=== PATIENT | female | born 1980 | race Caucasian/White ===

== ENCOUNTER 2017-10-22 01:17 | Emergency (ER) | payer SELFPAY ==
--- NOTE | 2017-10-22 01:24 | EDM.PDOC ---
ED HPI GENERAL MEDICAL PROBLEM - General Stated Complaint: INTOXICATED Time Seen by Provider: 10/22/17 01:17 Source of Information: Reports: Patient, EMS History Limitations: Reports: Intoxication, Uncooperative, Other (combative) - History of Present Illness INITIAL COMMENTS - FREE TEXT/NARRATIVE: 37 y.o.w.f came by EMS after being called from a bar to check on a intoxicated, violent (verbal and physically) 37 y.o.w.f. Pt was sedated with 200 mg of Ketamin i.m [employer] TECHNICIAN and 4 point restrained on arrival due to possible harm to self and others, to the ED. Pt was lethargic on arrival (Ketamin!). no IV in place. No family was present initially. Her brother was here shortly and left. He wants to be called only if his sister is sober. ([phone]) BP 142/60 Pulse ox 93% on RA pulse 127 RR 32 Temp, please see the nursing note. Onset Date: 10/22/17 Onset Time: 00:05 Duration: Hour(s): - Related Data Allergies Allergy/AdvReac Type Severity Reaction Status Date / Time No Known Allergies Allergy Verified 10/22/17 07:22 Home Meds: Home Meds Eszopiclone 3 mg PO BEDTIME PRN 10/22/17 [History] Gabapentin [Neurontin] 300 mg PO BID 10/22/17 [History] OXcarbazepine [Oxcarbazepine] 600 mg PO ASDIRECTED 10/22/17 [History] clonazePAM [Klonopin] 1 mg PO TID PRN 10/22/17 [History] ED ROS GENERAL - Review of Systems Review Of Systems: Unable To Obtain (intoxicated) - Physical Exam Exam: See Below Exam Limited By: Intoxication General Appearance: No Apparent Distress, Lethargic (after 200 mg Ketamin given by EMS), Obese Eye Exam: Bilateral Eye: Normal Inspection Ears: Normal External Exam Nose: Normal Inspection, Normal Mucosa Throat/Mouth: Normal Lips, Normal Gums, Normal Voice, No Airway Compromise Head Exam: Atraumatic, Normocephalic Neck: Normal Inspection, Supple, Non-Tender, Full Range of Motion Respiratory/Chest: No Respiratory Distress, Lungs Clear (poor ins effort), Normal Breath Sounds Cardiovascular: Normal Peripheral Pulses, Regular Rate, Rhythm, No Edema, No Murmur GI/Abdominal: Normal Bowel Sounds, Soft, Non-Tender, No Organomegaly, No Abnormal Bruit (Female) Exam: Deferred Rectal (Female) Exam: Deferred Neuro Exam (Abbreviated): CN II-XII Intact, Slow to Respond (intoxicated), Other (unable to ambulate) Back Exam: Normal Inspection, Full Range of Motion Extremities: Normal Inspection, Normal Range of Motion, Non-Tender, No Pedal Edema Psychiatric: Flat Affect, Other (lethargic after 200 mg of Ketamin) Skin Exam: Warm, Dry, Intact, Normal Color Course - Vital Signs Text/Narrative:: 37 y.o.w.f came by EMS after being called from a bar to check on a intoxicated, violent (verbal and physically) 37 y.o.w.f. Pt was sedated with 200 mg of Ketamin i.m [employer] TECHNICIAN and 4 point restrained on arrival due to possible harm to self and others, to the ED. Pt was lethargic on arrival (Ketamin!). no IV in place. No family was present initially. Her brother was here shortly and left. He wants to be called only if his sister is sober. ([phone]) BP 142/60 Pulse ox 93% on RA pulse 127 RR 32 Temp, please see the nursing note. PE: 37 y.o severely intoxicated w f, combative, screaming needing 3 people to "hold her down" Labs: ETOH 0.33, HCG Urine neg, WBC 12.5, H/H 16.6/48.3, UDS was neg, K 3.5, Na 144, BUN 11, Cr.0.8 Repeat ETOH Level 8.34 am:0.15 Imaging: Not indicated Impression: ETOH intoxication, Combative. Dehydration Tx: Ketamin 200 mg [employer]IEU TECHNICIAN by EMS. In the ED: NS, Thiamin, Benadryl, Lorazepam, Haldol, LR. 4 point restrained at 2.30 am Reexam: Pt was doing better at 8.30 am, was more cooperative, promising no to do harm to herself and others. Pt was taken off he 4 point restrains, was mbulating fine to the bathroom, Sister Negra was called, Message was left to pick her up in the ED at 8.43 am. Plan: D/C with instructions. Her brother will pick her up. Last Recorded V/S: Last Vital Signs Temp 37.1 C 10/22/17 08:04 Pulse 90 10/22/17 08:04 Resp 20 10/22/17 08:04 BP 107/62 10/22/17 08:04 Pulse Ox 98 10/22/17 08:04 - Orders/Labs/Meds Orders: Active Orders 24 hr Category Date Time Status Insert Urinary Catheter [OM.PC] Q24H Care 10/22/17 02:30 Ordered Urinary Catheter Assessment [RC] ASDIRECTED Care 10/22/17 02:30 Active HCG QUALITATIVE,URINE [URCHEM] Stat Lab 10/22/17 02:30 Ordered Lactated Ringers [Ringers, Lactated] 1,000 ml Med 10/22/17 04:15 Active IV ASDIRECTED Restraint/S VIOL/SD Continue 18 - Older [OM.PC] .4 Oth 10/22/17 06:30 Ordered HOURS Restraint/S VIOL/SD Initiate 18 - Older [OM.PC] Stat Oth 10/22/17 02:30 Ordered Medication Orders Lactated Ringer's (Ringers, Lactated) 1,000 mls @ 150 mls/hr IV ASDIRECTED DAMEON Last Admin: 10/22/17 04:38 Dose: 150 mls/hr Labs: Laboratory Tests 10/22/17 10/22/17 10/22/17 Range/Units 00:35 00:35 00:35 WBC 12.4 H (4.5-12.0) X10-3/uL RBC 5.08 (3.23-5.20) x10(6)uL Hgb 16.6 H (11.5-15.5) g/dL Hct 48.3 (30.0-51.3) % MCV 95.2 (80-96) fL MCH 32.7 (27.7-33.6) pg MCHC 34.4 (32.2-35.4) g/dL RDW 13.7 (11.5-15.5) % Plt Count 426 H (125-369) X10(3)uL MPV 8.4 (7.4-10.4) fL Neut % (Auto) 55.7 (46-82) % Lymph % (Auto) 35.0 (13-37) % Tama % (Auto) 7.8 (4-12) % Eos % (Auto) 1 (1.0-5.0) % Baso % (Auto) 1 (0-2) % Neut # (Auto) 6.9 (1.6-8.3) # Lymph # (Auto) 4.3 (0.6-5.0) # Tama # (Auto) 1.0 (0.0-1.3) # Eos # (Auto) 0.1 (0.0-0.8) # Baso # (Auto) 0.1 (0.0-0.2) # Sodium 144 (135-145) mmol/L Potassium 3.5 (3.5-5.3) mmol/L Chloride 106 (100-110) mmol/L Carbon Dioxide 21 (21-32) mmol/L BUN 11 (7-18) mg/dL Creatinine 0.8 (0.55-1.02) mg/dL Est Cr Clr Drug Dosing TNP Estimated GFR (MDRD) > 60 (>60) BUN/Creatinine Ratio 13.8 (9-20) Glucose 114 (80-116) mg/dL Calcium 8.5 L (8.6-10.2) mg/dL Total Bilirubin (0.1-1.3) mg/dL Direct Bilirubin (0.10-0.20) mg/dL AST (5-25) IU/L ALT (12-36) U/L Alkaline Phosphatase (56-112) IU/L Creatine Kinase (60-160) IU/L Total Protein (6.0-8.0) g/dL Albumin (3.5-5.2) g/dL Urine HCG, Qual (NEGATIVE) Urine Opiates Screen (NEGATIVE) Ur Oxycodone Screen (NEGATIVE) Ur Propoxyphene Screen (NEGATIVE) Ur Barbituates Screen (NEGATIVE) Ur Tricyclics Screen (NEGATIVE) Ur Phencyclidine Scrn (NEGATIVE) Ur Amphetamine Screen (NEGATIVE) Urine MDMA Screen (NEGATIVE) U Benzodiazepines Scrn (NEGATIVE) U Cocaine Metab Screen (NEGATIVE) U Marijuana (THC) Screen (NEGATIVE) Ethyl Alcohol 0.33 H* (<0.03) % 10/22/17 10/22/17 10/22/17 Range/Units 00:35 01:35 02:30 WBC (4.5-12.0) X10-3/uL RBC (3.23-5.20) x10(6)uL Hgb (11.5-15.5) g/dL Hct (30.0-51.3) % MCV (80-96) fL MCH (27.7-33.6) pg MCHC (32.2-35.4) g/dL RDW (11.5-15.5) % Plt Count (125-369) X10(3)uL MPV (7.4-10.4) fL Neut % (Auto) (46-82) % Lymph % (Auto) (13-37) % Tama % (Auto) (4-12) % Eos % (Auto) (1.0-5.0) % Baso % (Auto) (0-2) % Neut # (Auto) (1.6-8.3) # Lymph # (Auto) (0.6-5.0) # Tama # (Auto) (0.0-1.3) # Eos # (Auto) (0.0-0.8) # Baso # (Auto) (0.0-0.2) # Sodium (135-145) mmol/L Potassium (3.5-5.3) mmol/L Chloride (100-110) mmol/L Carbon Dioxide (21-32) mmol/L BUN (7-18) mg/dL Creatinine (0.55-1.02) mg/dL Est Cr Clr Drug Dosing Estimated GFR (MDRD) (>60) BUN/Creatinine Ratio (9-20) Glucose (80-116) mg/dL Calcium (8.6-10.2) mg/dL Total Bilirubin 0.2 (0.1-1.3) mg/dL Direct Bilirubin < 0.05 L (0.10-0.20) mg/dL AST 25 (5-25) IU/L ALT 45 H (12-36) U/L Alkaline Phosphatase 90 (56-112) IU/L Creatine Kinase 213 H (60-160) IU/L Total Protein 7.5 (6.0-8.0) g/dL Albumin 3.7 (3.5-5.2) g/dL Urine HCG, Qual (NEGATIVE) Urine Opiates Screen Negative (NEGATIVE) Ur Oxycodone Screen Negative (NEGATIVE) Ur Propoxyphene Screen Negative (NEGATIVE) Ur Barbituates Screen Negative (NEGATIVE) Ur Tricyclics Screen Negative (NEGATIVE) Ur Phencyclidine Scrn Negative (NEGATIVE) Ur Amphetamine Screen Negative (NEGATIVE) Urine MDMA Screen Negative (NEGATIVE) U Benzodiazepines Scrn Negative (NEGATIVE) U Cocaine Metab Screen Negative (NEGATIVE) U Marijuana (THC) Screen Negative (NEGATIVE) Ethyl Alcohol (<0.03) % 10/22/17 10/22/17 Range/Units 02:30 08:35 WBC (4.5-12.0) X10-3/uL RBC (3.23-5.20) x10(6)uL Hgb (11.5-15.5) g/dL Hct (30.0-51.3) % MCV (80-96) fL MCH (27.7-33.6) pg MCHC (32.2-35.4) g/dL RDW (11.5-15.5) % Plt Count (125-369) X10(3)uL MPV (7.4-10.4) fL Neut % (Auto) (46-82) % Lymph % (Auto) (13-37) % Tama % (Auto) (4-12) % Eos % (Auto) (1.0-5.0) % Baso % (Auto) (0-2) % Neut # (Auto) (1.6-8.3) # Lymph # (Auto) (0.6-5.0) # Tama # (Auto) (0.0-1.3) # Eos # (Auto) (0.0-0.8) # Baso # (Auto) (0.0-0.2) # Sodium (135-145) mmol/L Potassium (3.5-5.3) mmol/L Chloride (100-110) mmol/L Carbon Dioxide (21-32) mmol/L BUN (7-18) mg/dL Creatinine (0.55-1.02) mg/dL Est Cr Clr Drug Dosing Estimated GFR (MDRD) (>60) BUN/Creatinine Ratio (9-20) Glucose (80-116) mg/dL Calcium (8.6-10.2) mg/dL Total Bilirubin (0.1-1.3) mg/dL Direct Bilirubin (0.10-0.20) mg/dL AST (5-25) IU/L ALT (12-36) U/L Alkaline Phosphatase (56-112) IU/L Creatine Kinase (60-160) IU/L Total Protein (6.0-8.0) g/dL Albumin (3.5-5.2) g/dL Urine HCG, Qual Negative (NEGATIVE) Urine Opiates Screen (NEGATIVE) Ur Oxycodone Screen (NEGATIVE) Ur Propoxyphene Screen (NEGATIVE) Ur Barbituates Screen (NEGATIVE) Ur Tricyclics Screen (NEGATIVE) Ur Phencyclidine Scrn (NEGATIVE) Ur Amphetamine Screen (NEGATIVE) Urine MDMA Screen (NEGATIVE) U Benzodiazepines Scrn (NEGATIVE) U Cocaine Metab Screen (NEGATIVE) U Marijuana (THC) Screen (NEGATIVE) Ethyl Alcohol 0.15 H* (<0.03) % Meds: Medications Generic Name Dose Route Start Last Admin Trade Name Freq PRN Reason Stop Dose Admin Lactated Ringer's 1,000 mls @ 150 mls/hr 10/22/17 04:15 10/22/17 04:38 Ringers, Lactated IV 150 mls/hr ASDIRECTED DAMEON Administration Discontinued Medications Generic Name Dose Route Start Last Admin Trade Name Freq PRN Reason Stop Dose Admin Diphenhydramine HCl 50 mg 10/22/17 03:31 10/22/17 04:33 Benadryl IVPUSH 10/22/17 03:32 Not Given ONETIME ONE Diphenhydramine HCl 50 mg 10/22/17 03:35 10/22/17 03:51 Benadryl IM 10/22/17 03:36 50 mg ONETIME ONE Administration Haloperidol Lactate 5 mg 10/22/17 04:17 10/22/17 04:25 Haldol IM 10/22/17 04:18 5 mg ONETIME ONE Administration Sodium Chloride 1,000 mls @ 999 mls/hr 10/22/17 01:45 10/22/17 03:11 Normal Saline IV 999 mls/hr .BOLUS DAMEON Administration Lorazepam 2 mg 10/22/17 03:31 10/22/17 04:33 Ativan IVPUSH 10/22/17 03:32 Not Given ONETIME ONE Lorazepam 2 mg 10/22/17 03:36 10/22/17 03:51 Ativan IM 10/22/17 03:37 2 mg ONETIME STA Administration Thiamine HCl 100 mg 10/22/17 01:44 10/22/17 02:13 Vitamin B-1 IV 10/22/17 01:45 100 mg ONETIME ONE Administration Departure - Departure Time of Disposition: 09:13 Disposition: Home, Self-Care 01 Condition: Good Clinical Impression: ETOH abuse - Discharge Information Referrals: PCP,None [Primary Care Provider] - Additional Instructions: Please increase your water intake, please no ETOH! you must be observed for next 24 hours. F/U, please come back if needed. - My Orders Last 24 Hours: My Active Orders 10/22/17 02:30 Insert Urinary Catheter [OM.PC] Q24H Urinary Catheter Assessment [RC] ASDIRECTED HCG QUALITATIVE,URINE [URCHEM] Stat Restraint/S VIOL/SD Initiate 18 - Older [OM.PC] Stat 10/22/17 04:15 Lactated Ringers [Ringers, Lactated] 1,000 ml IV ASDIRECTED 10/22/17 06:30 Restraint/S VIOL/SD Continue 18 - Older [OM.PC] .4 HOURS - Assessment/Plan Last 24 Hours: My Active Orders 10/22/17 02:30 Insert Urinary Catheter [OM.PC] Q24H Urinary Catheter Assessment [RC] ASDIRECTED HCG QUALITATIVE,URINE [URCHEM] Stat Restraint/S VIOL/SD Initiate 18 - Older [OM.PC] Stat 10/22/17 04:15 Lactated Ringers [Ringers, Lactated] 1,000 ml IV ASDIRECTED 10/22/17 06:30 Restraint/S VIOL/SD Continue 18 - Older [OM.PC] .4 HOURS
[2017-10-22] MEDS ORDERED: Thiamine 200 MG/2 ML MDV IV ONE (01:44)
[2017-10-22] MEDS: Sodium Chloride 0.9% 1,000 ML IV SCH ×2 (02:00→03:11)
[2017-10-22] MEDS ORDERED: diphenhydrAMINE 50 MG/ML SDV IVPUSH ONE (03:31)
[2017-10-22] MEDS ORDERED: LORazepam 2 MG/ML SDV IVPUSH ONE (03:31)
[2017-10-22] MEDS ORDERED: diphenhydrAMINE 50 MG/ML SDV IM ONE (03:35)
[2017-10-22] MEDS ORDERED: LORazepam 2 MG/ML SDV IM STA (03:36)
[2017-10-22] MEDS ORDERED: Lactated Ringers 1,000 ML IV SCH (04:15)
[2017-10-22] MEDS ORDERED: Haloperidol Lactate 5 MG/ML SDV IM ONE (04:17)
== END 2017-10-22 09:45 | disposition home or self-care (01) ==
LOC: FB.ED 01:17
DX: F10.129 Alcohol abuse with intoxication, unspecified (principal); E86.0 Dehydration; Y90.0 Blood alcohol level of less than 20 mg/100 ml
CPT/HCPCS: 36415; 51702; 80048; 80076; 80305; 81025; 82550; 85025; 96361; 96372; 96374; 99284; 99285; G0480; J1200; J1630; J2060; J3411; J7030; J7120